=== PATIENT | male | born 1990 | race Caucasian/White ===

== ENCOUNTER 2018-09-27 00:40 | Emergency (ER) | payer BC, MEDICAID ==
--- NOTE | 2018-09-27 00:51 | Emergency Department Record ---
History of Present Illness - General Chief Complaint: Laceration(s) Stated Complaint: LACERATION Time Seen by Provider: 09/27/18 00:47 Source: Patient Mode of Arrival: Ambulatory - History of Present Illness Initial Commments: The patient states he was using a tool that is designed to remove floor tile in his bathroom when he accidentally slid it across his non-dominant left hand, cutting off his left ring fingernail. He is UTD on tetanus. He denies other injury or other medical problems. Onset/Timin -: Minutes(s) Extremity Location: Left: Hand (4th finger) Place: Home Context: Accidental Associated Symptoms: None Treatments Prior to Arrival: Bandage - [place] Coma Scale Eye Response: (4) Open spontaneously Motor Response: (6) Obeys commands Verbal Response: (5) Oriented Jeri Total: 15 - Related Data Hx Tetanus Toxoid Vaccination: Yes Year of Tetanus Vaccination: 2013 Home Medications Medication Instructions Recorded Confirmed Last Taken No Home Med [NO HOME MEDS] 09/27/18 09/27/18 Unknown Allergies Allergy/AdvReac Type Severity Reaction Status Date / Time No Known Drug Allergies Allergy Verified 09/27/18 00:46 Travel Screening - Travel/Exposure Within Last 30 Days Have you traveled within the last 30 days?: No - Travel/Exposure Within Last Year Have you traveled outside the [place] in the last year?: No - Additonal Travel Details Have you been exposed to anyone with a communicable illness?: No - Travel Symptoms Symptom Screening: None Review of Systems Reviewed: No additional complaints except as noted below Constitutional: Reports: As per HPI. Denies: Chills, Fever, Malaise, Night sweats, Weakness, Weight change Eyes: Reports: As per HPI. Denies: Eye discharge, Eye pain, Photophobia, Vision change ENT: Reports: As per HPI. Denies: Congestion, Dental pain, Ear pain, Epistaxis, Hearing loss, Throat pain Respiratory: Reports: As per HPI. Denies: Cough, Dyspnea, Hemoptysis, Stridor, Wheezes Cardiovascular: Reports: As per HPI. Denies: Arrhythmia, Chest pain, Dyspnea on exertion, Edema, Murmurs, Orthopnea, Palpitations, Paroxysmal nocturnal dyspnea, Rheumatic Fever, Syncope Endocrine: Reports: As per HPI. Denies: Fatigue, Heat or cold intolerance, Polydipsia, Polyuria Gastrointestinal: Reports: As per HPI. Denies: Abdominal pain, Constipation, Diarrhea, Hematemesis, Hematochezia, Melena, Nausea, Vomiting Genitourinary: Reports: As per HPI. Denies: Dysuria, Frequency, Hematuria, Incontinence, Retention, Testicular pain, Testicular mass, Urgency Musculoskeletal: Reports: As per HPI. Denies: Arthralgia, Back pain, Gout, Joint swelling, Myalgia, Neck pain Skin: Reports: As per HPI. Denies: Bruising, Change in color, Change in hair/nails, Lesions, Pruritus, Rash Neurological: Reports: As per HPI. Denies: Abnormal gait, Confusion, Headache, Numbness, Paresthesias, Seizure, Tingling, Tremors, Vertigo, Weakness Psychiatric: Reports: As per HPI. Denies: Anxiety, Auditory hallucinations, Depression, Homicidal thoughts, Suicidal thoughts, Visual hallucinations Hematological/Lymphatic: Reports: As per HPI. Denies: Anemia, Blood Clots, Easy bleeding, Easy bruising, Swollen glands Past Medical History - SOCIAL HISTORY Smoking Status: Never smoker Alcohol Use: Occasional Drug Use: Rare Drug Use Detail:: Marijuana - RESPIRATORY Hx Respiratory Disorders: No - CARDIOVASCULAR Hx Cardio Disorders: No - NEURO Hx Neuro Disorders: No - GI Hx GI Disorders: No - Hx Genitourinary Disorders: No - ENDOCRINE Hx Endocrine Disorders: No - MUSCULOSKELETAL Hx Musculoskeletal Disorders: No - PSYCH Hx Psych Problems: No - HEMATOLOGY/ONCOLOGY Hx Hematology/Oncology Disorders: No Family Medical History Any Significant Family History?: No Physical Exam - General General Appearance: Alert, Oriented x3, Cooperative, Mild distress (holding his left hand that has been bleeding.) - Head Head exam: Normal inspection - Eye Eye exam: Normal appearance, PERRL, EOMI. negative: Conjunctival injection, Nystagmus Pupils: Normal accommodation - ENT ENT exam: Normal exam, Mucous membranes moist, Normal external ear exam, Normal orophraynx Ear exam: Normal external inspection. negative: External canal tenderness Nasal Exam: Normal inspection. negative: Discharge, Sinus tenderness Mouth exam: Normal external inspection, Tongue normal Teeth exam: Normal inspection. negative: Dental caries Throat exam: Normal inspection. negative: Tonsillar erythema, Tonsillar exudate - Neck Neck exam: Normal inspection, Full ROM. negative: Lymphadenopathy, Meningismus, Tenderness - Respiratory Respiratory exam: Normal lung sounds bilaterally. negative: Respiratory distress - Cardiovascular Cardiovascular Exam: Regular rate, Normal rhythm - GI/Abdominal GI/Abdominal exam: Soft. negative: Tenderness - Rectal Rectal exam: Deferred - exam: Deferred - Extremities Extremities exam: Normal inspection, Full ROM, Normal capillary refill, Other (laceration to left right finger.). negative: Tenderness Image of Hand: 1 - avulsion of fingernail from razor blade shaving. - Back Back exam: Reports: Normal inspection, Full ROM. Denies: Muscle spasm, Rash noted, Tenderness - Neurological Neurological exam: Alert, CN II-XII intact, Normal gait, Oriented X3, Reflexes normal. negative: Motor sensory deficit - Psychiatric Psychiatric exam: Normal affect, Normal mood - Skin Skin exam: Dry, Intact, Normal color, Warm Course Vital Signs 09/27/18 00:42 Temperature 98.4 F Pulse Rate 71 Respiratory 18 Rate Blood Pressure 160/79 Pulse Ox 97 - Reevaluation(s) Reevaluation #1: Sterile technique, NS irrigation, gelfoam and coagulant dressing applied to wound which is oozing, pressure dressing applied. Patient warned that his numb finger must be protected from further injury while numb. 09/27/18 01:37 09/27/18 01:54 Medical Decision Making - Management Options MDM Management: No Additional Work-up Planned - Data Complexity MDM Data: X-Ray Ordered and/or Reviewed (Xray: no fracture seen per ED physician.(patient is aware this is preliminary reading)) Disposition Clinical Impression: Avulsion of nail bed Disposition: Home, Self-Care Condition: (1) Good Instructions: Laceration (ED) Additional Instructions: Keflex 500mg three times daily for 7 days. Keep covered for protection. Tylenol alternated with ibuprofen as directed as needed for pain. Recheck with PCP as needed and for recheck of blood pressure which was elevated this visit. Forms: Patient Portal Access Quality - Quality Measures Quality Measures: N/A - Blood Pressure Screening Does Patient Have Any of the Following: No Blood Pressure Classification: Hypertensive Reading Systolic Measurement: 160 Diastolic Measurement: 79 Screening for High Blood Pressure: < First Hypertensive BP, F/U Documented > [G8950] First Hypertensive Follow-up Interventions: Follow-up with rescreen GT 1 day and LT 4 weeks.
[2018-09-27] MEDS ORDERED: GELATIN SPONGE,ABSORBABLE 12-7MM TP ONE (01:37)
[2018-09-27] MEDS ORDERED: CEPHALEXIN 500 MG CAPSULE PO STA (01:37)
[2018-09-27] MEDS ORDERED: THROMBIN/GELATIN FOAM HEMOSTAT (THROMBI-GEL) TP ONE (01:57)
[2018-09-27] MEDS ORDERED: Diph,Pert(Acell),Tet Vac 0.5 ML SYR IM ONE (02:25)
--- NOTE | 2018-09-27 14:23 | RADIOLOGY REPORT ---
EXAM: LEFT HAND, THREE VIEWS HISTORY: LACERATION OF LEFT RING FINGER BECAUSE OF A SAW. TECHNIQUE: Three views of the left hand were obtained. Comparison: None. FINDINGS: The phalanges and metatarsal bones are intact. The joints are preserved. There is soft tissue disruption of the distal end of the fourth finger. There is air in the tissues, but there is no evidence of radiopaque foreign body. The carpal bones and distal radius and ulna within the wrist show no acute findings. Incidentally the ossification center of the distal ulnar styloid process did not fuse with the rest of the ulna. IMPRESSION: 1. ACUTE SOF TISSUE INJURY LEFT RING FINGER, BUT NO EVIDENCE OF UNDERLYING BONE PATHOLOGY OF THE LEFT HAND. 2. NO EVIDENCE OF RADIOPAQUE FOREIGN BODY. JOB NUMBER: [id number] [facility]
== END 2018-09-27 02:35 | disposition home or self-care (01) ==
LOC: ER 00:40
DX: S61.315A Laceration without foreign body of left ring finger with damage to nail, initial encounter (principal); W27.8XXA Contact with other nonpowered hand tool, initial encounter; Y93.E9 Activity, other interior property and clothing maintenance; Y92.002 Bathroom of unspecified non-institutional (private) residence as the place of occurrence of the external cause
CPT/HCPCS: 90715; 96372; 99284